=== PATIENT | male | born 1955 | race African-American/Black ===

== ENCOUNTER 2017-01-31 14:00 | Emergency (ER) | payer MEDICARE, OTHER | END 2017-01-31 14:18 | disposition home or self-care (01) | LOC: NAV ERS 14:00 | DX: K02.9 Dental caries, unspecified (principal); I25.10 Atherosclerotic heart disease of native coronary artery without angina pectoris | CPT/HCPCS: 99282 ==

== ENCOUNTER 2017-04-24 19:04 | Emergency (ER) | payer MEDICARE, OTHER ==
[2017-04-24] MEDS ORDERED: Acetaminophen 500 MG TAB ONE (19:33)
[2017-04-24] MEDS ORDERED: Amoxicillin/Potassium Clav 875 MG TAB ONE (19:33)
== END 2017-04-24 19:43 | disposition home or self-care (01) ==
LOC: NAV ERS 19:04
DX: K02.9 Dental caries, unspecified (principal); I25.10 Atherosclerotic heart disease of native coronary artery without angina pectoris
CPT/HCPCS: 99282